=== PATIENT | male | born 1980 | race Caucasian/White ===

== ENCOUNTER 2020-02-06 13:45 | Emergency (ER) | payer OTHER ==
[~2020-02-06] VITALS: Ht 180.3 cm; Wt 87.1 kg
--- NOTE | 2020-02-06 13:50 | NUR ---
Patient BIB [id number]. Patient was seen in the middle of the street somewhere in [facility]. "acting bizaare". Patient A&O x4. Speech is clear and able to make needs known / follow commands. Patient also noted saying random stuff. When asked if the patient took any substances, patient denies ingesting anything. Patient noted trying to get out of bed multiple times. Patient accompanied by [employer]. Attempted to reorient patient, patient still noted "acting bizaare". Breathing even and unlabored. No cough or SOB noted. denies any CP, Dizziness, N / V / PEÑA. Safety precautions implemented. s/r up x2.
--- NOTE | 2020-02-06 13:50 | NUR ---
Dr. Benton at bedside for MSE
[2020-02-06] MEDS ORDERED: HALOPERIDOL LACTATE 5 MG/1 ML VIAL IM ONE (14:00)
[2020-02-06] MEDS ORDERED: LORAZEPAM 2 MG/1 ML VIAL IM ONE (14:00)
[2020-02-06] MEDS ORDERED: HALOPERIDOL LACTATE 5 MG/1 ML VIAL ONE (14:04)
[2020-02-06] MEDS ORDERED: LORAZEPAM 2 MG/1 ML VIAL ONE (14:05)
[2020-02-06 14:17] LABS: CARBON DIOXIDE 28 mmol/L (21-32); CHLORIDE 106 mmol/L (98-107); CREATININE 1.4 mg/dL (0.6-1.3); GLUCOSE 99 mg/dL (74-106); UREA NITROGEN, BLOOD 15 mg/dL (7-18)
[2020-02-06 14:18] LABS: BASOPHILS % (AUTO) 0.1 % (0.0-2.0); HEMATOCRIT 44.5 % (36.7-47.1); HEMOGLOBIN 14.9 g/dL (12.5-16.3); LYMPHOCYTES # (AUTO) 1.1 K/uL (20.0-40.0); LYMPHOCYTES % (AUTO) 8.2 % (20.5-51.5); MEAN CORPUSCULAR HEMOGLOBIN 30.2 uug (23.8-33.4); MEAN CORPUSCULAR HGB CONC 33 g/dL (32.5-36.3); MEAN CORPUSCULAR VOLUME 90.6 fL (73.0-96.2); MONOCYTES # (AUTO) 1.4 K/uL (2.0-10.0); MONOCYTES % (AUTO) 10.6 % (0.0-11.0); NEUTROPHILS # (AUTO) 10.5 K/uL (1.8-8.9); NEUTROPHILS % (AUTO) 81.1 % (38.5-71.5); PLATELET COUNT (AUTO) 206 K/uL (152-348); RED BLOOD CELL COUNT(AUTO) 4.91 MIL/uL (4.06-5.63); WHITE BLOOD COUNT (AUTO) 12.9 K/uL (3.6-10.2)
[2020-02-06 14:23] LABS: ALANINE AMINOTRANSFERASE 48 U/L (16-63); ALKALINE PHOSPHATASE 65 U/L (50-136); ASPARTATE AMINOTRANSFERASE 44 U/L (15-37); BILIRUBIN,DIRECT 0.2 mg/dL (0.0-0.2); TOTAL PROTEIN, SERUM 8.1 g/dL (6.4-8.2)
[2020-02-06 14:24] LABS: ACETAMINOPHEN < 2.0 ug/mL (10-30)
[2020-02-06 14:28] LABS: ETHANOL < 3 MG/DL (0-0)
--- NOTE | 2020-02-06 14:30 | NUR ---
Bilateral wrist restraints applied. patient able to move digits freely without difficulty. Cap refill <3 sec.
--- NOTE | 2020-02-06 15:00 | NUR ---
Patient noted sleeping. Bilateral wrist restraints removed. No skin breakdown noted. Breathing even and unlabored. NAD noted
[2020-02-06 15:06] LABS: *BILIRUBIN,URIN NEGATIVE (NEGATIVE); *BLOOD, URINE NEGATIVE (NEGATIVE); *CLARITY,URINE CLEAR (CLEAR); *COLOR,URINE YELLOW (YELLOW); *KETONES,URINE 1+ (NEGATIVE); *UROBILINOGEN,URINE 0.2 E.U./dl (NORMAL); LEUKOCYTE ESTERASE ,URINE NEGATIVE (NEGATIVE); NITRITE, URINE NEGATIVE (NEGATIVE); PH,URINE 5.5 (5.0-8.0); UGLUCOSE NEGATIVE (NEGATIVE)
[2020-02-06 15:22] LABS: BACTERIA,URINE FEW /HPF (NONE SEEN); MUCUS,URINE FEW /LPF (0-FEW); RBC,URINE 0-3 /HPF (0-3)
[2020-02-06 15:26] LABS: *AMPHETAMINE, URINE NEGATIVE (NEGATIVE); *BARBITURATE, URINE NEGATIVE (NEGATIVE); *CANNABINOID, URINE POSITIVE (NEGATIVE); *COCCAINE, URINE NEGATIVE (NEGATIVE); *OPIATE, URINE NEGATIVE (NEGATIVE); *PHENCYCLIDINE SCREEN,URINE NEGATIVE (NEGATIVE)
--- NOTE | 2020-02-06 17:11 | NUR ---
Patient in bed sleeping comfortably. Breathing even and unlabored. NAD noted. 1:1 sitter at bedside
--- NOTE | 2020-02-06 17:25 | NUR ---
Patient awake, able to stand up unassisted.
--- NOTE | 2020-02-06 17:27 | NUR ---
Jennifer MOTOR VEHICLE FIELD REPRESENTATIVE notified. no ETA at this time
--- NOTE | 2020-02-06 18:15 | NUR ---
Pinky LANDSCAPE ARCHITECT AND PLANNER at bedside to evaluate patient
--- NOTE | 2020-02-06 19:13 | NUR ---
Called Assistant Manager Quality Management, for sitter, current sitter is going home, no sitter available at this time, will personally monitor patient 1:1
--- NOTE | 2020-02-06 20:15 | NUR ---
Received call back from [facility], spoke with Kendell, patient going to [address] [place] [address], [place] [address], [facility]. Accepting MD is Dr. Merlos. Number to report to is .
--- NOTE | 2020-02-06 20:20 | NUR ---
Called Ayaka for transport to [facility], [address] [facility] [address]. ETA 90 min ~2200. Trip#[id number]
--- NOTE | 2020-02-06 20:50 | NUR ---
Called Loan Underwriter for sitter due to ER starting to get busy, adviced to use security, security at bedside for 1:1.
--- NOTE | 2020-02-06 22:14 | NUR ---
Report given to Ramin TOM, [facility].
--- NOTE | 2020-02-06 22:28 | NUR ---
Ayaka arrived to ER to transport patient to [facility]. Report and documentation given to EMT.
== END 2020-02-06 22:29 ==
LOC: ER 13:45
DX: F29 Unspecified psychosis not due to a substance or known physiological condition (principal); R00.0 Tachycardia, unspecified
CPT/HCPCS: 36415; 51702; 71045; 80048; 80076; 80307 ×2; 80329; 81001; 85025; 93005; 96372; 99285; G0480; J1630; J2060; C1758